=== PATIENT | male | born 1995 | race African-American/Black ===

== ENCOUNTER 2020-08-08 08:06 | Inpatient (IN) | payer SELFPAY ==
[2020-08-08] VITALS (11 sets, daily range): BP systolic 142–180; BP diastolic 82–132; PULSE 76–98; RESP 15–18; TEMP 36.1–36.7; O2SAT 94–100; BMI 28.8
--- NOTE | ~2020-08-08 | CT_ITS ---
EXAMINATION: CT abdomen pelvis w con DATE: 08/08/2020 09:40 INDICATION: Abdominal pain. TECHNIQUE: Computed tomography (CT) of the abdomen and pelvis was performed with 100 mL Omnipaque 350 intravenous contrast. Automated exposure control and iterative reconstruction technique were employe d. The dose-length product was 653.77 mGy-cm. COMPARISON: None. FINDINGS: The visualized portions of the lung bases are clear without pneumonia or pleural effusion. The heart size is normal. No pericardial effusion. There is mild fat stranding adjacent to the uncina te process of the pancreas. The liver, gallbladder, spleen, adrenal glands, and kidneys are normal. T here are no dilated loops of bowel. The appendix is normal. There are no pathologically enlarged lymp h nodes. There is no free intraperitoneal fluid. There is mild lumbar spondylosis. IMPRESSION: 1. Mild fat stranding adjacent to the uncinate process of the pancreas suspicious for acute interstit ial pancreatitis. Correlate with lipase. Reviewed, dictated and finalized at location A. IMPRESSION: 1. Mild fat stranding adjacent to the uncinate process of the pancreas suspicio us for acute interstitial pancreatitis. Correlate with lipase.
--- NOTE | ~2020-08-08 | XR_ITS ---
XR lumbar spine 2-3V DATE: 08/08/2020 08:56 INDICATION: Low back pain TECHNIQUE: AP, lateral, coned lateral lumbosacral views COMPARISON: None FINDINGS: Normal alignment of lumbar spine. No fracture or bone destruction or spondylolisthesis. The included lower thoracic and lumbar pedicles are intact. Lumbar and lumbosacral interspaces are well preserved. The sacroiliac joints appear normal. IMPRESSION: Negative Reviewed, dictated and finalized at location A. IMPRESSION: Negative
--- NOTE | 2020-08-08 08:23 | ED.GENADULT ---
HPI - General Adult General Chief complaint: Unspecified Stated complaint: Kidney and back pain Time Seen by Provider: 08/08/20 08:11 Source: patient History of Present Illness HPI narrative: Patient is a 24 y/o male complaining intermittent bilateral low back pain for last 4 months. He describes his pain as sharp and rates it as 10/10 when it hits. He also has some intermittent epigastric abdominal pain, nausea, vomiting, dysuria, urgency and frequency. His last episode of vomiting was yesterday. He admits that he drinks alcohol frequently. Related Data Home Medications Medication Instructions Recorded Confirmed No Home Medications 08/08/20 08/08/20 Allergies Allergy/AdvReac Type Severity Reaction Status Date / Time No Known Allergies Allergy Verified 08/08/20 08:38 Review of Systems Constitutional: Constitutional: Denies chills, Denies fever(s), Denies headache(s) and Denies weakness Eyes: Eyes: Denies blurry vision ENT: Denies headache(s) and Denies neck pain Cardiovascular: Cardiovascular: Denies chest pain and Denies dyspnea Respiratory: Respiratory: Denies cough and Denies dyspnea Gastrointestinal: Gastrointestinal: Denies abdominal pain, Denies diarrhea, Denies nausea and Denies vomiting Genitourinary: Genitourinary: Denies hematuria and Reports dysuria Musculoskeletal: Musculoskeletal: Reports back pain and Denies neck pain Neurologic: Denies headache(s) and Denies weakness Exam Const: General: no acute distress and well developed Orientation/consciousness: oriented to person, oriented to place, oriented to time and patient oriented x3 HENMT: Head: normocephalic Ears: external ears normal General nose exam: Normal external nose present Eyes: General: appearance normal, both eyes and all related structures Conjunctivae: conjunctivae normal Neck: Neck: normal visual inspection and full ROM Chest: Chest palpation & inspection: normal inspection of the chest and no tenderness Resp: Effort & Inspection: normal respiratory effort Auscultation: clear to auscultation bilaterally Cardio: Rate: regular rate Rhythm: regular rhythm GI: GI Palp: Yes abdominal tenderness (epigastric) and Yes Soft to palpation Skin: General skin exam: normal color and turgor normal Neuro: General: oriented to person, oriented to place, oriented to time and patient oriented x3 Cognition (Neuro): normal cognition Extrem: General: normal to inspection, full ROM and no pedal edema Psych: Appearance: grossly normal Mental Status: mental status grossly normal Affect: normal affect Course Consultations Consultation #1: Discussed with Dr. Quiñonez, who agrees to admit. Date: 08/08/20 Time: 10:47 Vital Signs Vital signs: Vital Signs Temperature 36.6 C 08/08/20 08:20 Pulse Rate 97 08/08/20 08:20 Respiratory Rate 16 08/08/20 08:20 Blood Pressure 177/132 H 08/08/20 08:20 Pulse Oximetry 100 08/08/20 08:20 Temperature 36.6 C 08/08/20 08:20 Pulse Rate 97 08/08/20 08:20 Respiratory Rate 16 08/08/20 08:20 Blood Pressure 177/132 H 08/08/20 08:20 Pulse Oximetry 100 08/08/20 08:20 Medical Decision Making Vital Signs Vital Signs: Vital Signs Temperature 36.6 C 08/08/20 08:20 Pulse Rate 97 08/08/20 08:20 Respiratory Rate 16 08/08/20 08:20 Blood Pressure 177/132 H 08/08/20 08:20 Pulse Oximetry 100 08/08/20 08:20 Temperature 36.6 C 08/08/20 08:20 Pulse Rate 97 08/08/20 08:20 Respiratory Rate 16 08/08/20 08:20 Blood Pressure 177/132 H 08/08/20 08:20 Pulse Oximetry 100 08/08/20 08:20 Lab Data Result diagrams: 08/08/20 08:30 08/08/20 08:30 Labs: Lab Results 08/08/20 08/08/20 08/08/20 Range/Units 08:30 08:30 08:30 WBC 4.9 (4.5-10.0) K/mm3 RBC 4.99 (4.6-6.20) M/mm3 Hgb 14.0 (14.0-18.0) g/dL Hct 42.8 (42.0-52.0) % MCV 85.8 (80-100) fl MCH 28.1 (26-34) pg MCHC 32.7 (32-36) g
[2020-08-08 08:47] LABS: Basophils Absolute Auto 0.1 K/mm3 (0.0-0.1); Eosinophils Absolute Auto 0.1 K/mm3 (0-0.3); Hematocrit 42.8 % (42.0-52.0); Immature Granulocyte Absolute 0.02 K/mm3 (0.00-0.031); Immature Granulocyte Percent A 0.4 % (0-0.5); Lymphocytes Absolute Auto 2.42 K/mm3 (0.9-3.2); Lymphocytes Percent Auto 49.3 % (18.3-44.2); Mean Corpuscular HGB Conc 32.7 g/dl (32-36); Mean Corpuscular Hemoglobin 28.1 pg (26-34); Mean Corpuscular Volume 85.8 fl (80-100); Mean Platelet Volume 9.5 fl (7.4-10.4); Monocytes Absolute Auto 0.5 K/mm3 (0.1-0.6); Neutrophils Absolute Auto 1.8 K/mm3 (1.3-6.7); Neutrophils Percent Auto 37.3 % (45.5-73.1); Platelet Count Result 231 k/mm3 (150-375); Red Blood Count 4.99 M/mm3 (4.6-6.20); Red Cell Distribution Width 14.3 % (11.5-14.5); White Blood Count 4.9 K/mm3 (4.5-10.0)
[2020-08-08 08:50] LABS: Add Urine Microscopic? YES; Appearance Urine Clear (Clear); Bilirubin Urine Negative (Negative); Blood Urine Negative (Negative); Color Urine Yellow (Yellow); Glucose Urine UA 2+ mg/dL (Negative); Ketones Urine Negative (Negative); Leukocyte Esterase Ur Negative LEU/UL (Negative); Mucus Urine Rare /lpf; Nitrate Urine Negative (Negative); Protein Urine 1+ mg/dL (Negative); RBC Urine 0-2 /hpf (0-2); Specific Grav Ur 1.027 (1.001-1.035); Squamous Epithelial Cell Urine Rare /hpf (Few); Urobilinogen Urine Negative mg/dL (<2.0); WBC Urine 0-3 /hpf
[2020-08-08 09:00] LABS: Alanine Aminotransferase 84 U/L (4-50); Albumin Level 4.9 g/dL (3.5-5.1); Alkaline Phosphatase 105 U/L (38-126); Anion Gap 12 mmol/L (8-16); Aspartate Amino Transferase 139 U/L (17-59); Bilirubin,Total 0.3 mg/dL (0.2-1.3); Blood Urea Nitrogen 14 mg/dL (9-20); Calcium 9.2 mg/dL (8.4-10.2); Carbon Dioxide 32 mmol/L (22-30); Chloride 104 mmol/L (98-107); Estimated Glomerular Filt Rate > 60; Glucose 132 mg/dL (75-110); Potassium 3.8 mmol/L (3.4-5.0); Sodium 148 mmol/L (137-145)
[2020-08-08] MEDS: amLODIPine BESYLATE 5 MG TABLET 10 MG PO (09:15)
[2020-08-08] MEDS: hydroCHLOROthiazide 25 MG TABLET PO (09:17)
[2020-08-08 10:01] LABS: Hepatitis B Surface Antigen Negative (Negative)
[2020-08-08 10:07] LABS: HAV RESULT Negative (Negative); Hepatitis B Core IgM Result Negative (Negative)
[2020-08-08 10:19] LABS: Hepatitis C Virus Antibody Negative (Negative)
[2020-08-08 10:20] LABS: Lipase 504 U/L (23-300)
[2020-08-08 10:35] LABS: Ethanol 386 mg/dL (<10)
[2020-08-08] MEDS: KETOROLAC 30 MG/ML VIAL (*BKC) IV PUSH ×2 (10:54→18:02)
[2020-08-08] MEDS: SODIUM CHLORIDE 0.9% IV 1,000 ML 999 ML IV CONT (10:55)
[2020-08-08] MEDS: lisinopriL 20 MG TABLET 40 MG PO (10:55)
--- NOTE | 2020-08-08 11:48 | PC.NURSE ---
This patient, Angelia Nava, was admitted to [facility] Surg Room 303-01. Patient/family oriented to hospital policies and general routines including ID bracelet, bed and alarms, visiting hours, pain management, procedures, bathroom and other care routines, personal items, smoking policy, room service/diet, and visiting hours. Information on how to activate the Rapid Response Team has been discussed. Patient/Family are encouraged to report perceived risks to care and to ask questions if they do not understand what they are told or what they should do.
[2020-08-08] MEDS: SODIUM CHLORIDE 0.9% IV 1,000 ML 125 ML IV CONT ×2 (12:01→18:04)
--- NOTE | 2020-08-08 14:00 | PM.IMHP ---
H&P: HPI History of Present Illness Date/Time: 08/08/20 14:00 Chief complaint: Abdominal pain. Narrative: Angelia Nava is a 24-year-old male with history of untreated hypertension who presented to the emergency department earlier this morning for evaluation of abdominal pain. This morning he developed severe sharp, throbbing pain in the epigastrium radiating through to the back associated with nausea and vomiting. He has had similar symptoms intermittently over the past 4 months or so, but never this severe. With further questioning he admits to binge drinking alcohol 2 to 3 times a week, upwards of a 5th of vodka each night, and in fact he was intoxicated on arrival to the emergency department today with a blood alcohol level of 386. He was given Toradol in the emergency department with some benefit however his pain has since returned, now rated 7/10. He sees no pattern as to when these episodes of discomfort occur, denying that they specifically related to previous binges. He denies history of GERD but it sounds as though he has intermittent discomfort in the epigastrium and bloating more recently and reports an increase in stress recently as well. Last bowel movement was yesterday and was relatively unremarkable however he does report on occasion having darker colored stools although he has not noticed any overt blood. He has no history of pancreatitis or gallbladder disease. No known history of GERD or peptic ulcers. Of note, he also reports intermittent urinary issues, reporting occasional pelvic fullness, urgency, dysuria, and dark cloudy urine. He has previously been treated for chlamydia but that was many years ago. No genital sores or discharge. Review of Systems Review of Systems: Narrative: Twelve systems were reviewed with pertinent positives and negatives as per HPI. No history of seizure. On occasion he will have shakes after going on alcohol binges, but he has not had any other symptoms of withdrawal aside from that. No fever, chills, or sweats. No recent cold or flu symptoms. He denies chest pain and shortness of breath. No cough. Except as documented, all other systems were reviewed and are negative. [facility] Past Medical History Medical History (Updated 08/08/20 @ 22:46 by Jennifer Reddy PA-C) Alcohol abuse Hypertension Surgical History Surgical History (Updated 08/08/20 @ 22:41 by Jennifer Reddy PA-C) No history of previous surgery Family History Family History (Updated 08/08/20 @ 22:41 by Jennifer Reddy PA-C) Father Hypertension Heart attack Father had IN at age 36. Mother Hypertension Social History Social History (Updated 08/08/20 @ 22:42 by Jennifer Reddy PA-C) Social History: Surrogate decision maker: Daphnie Rich, significant other. Code status: Full code. Smoking packs per day: 0.25 Smoking cigarettes per day: 5.0 Smoking status: Current every day smoker Tobacco type: cigarettes Alcohol intake: current Alcohol use details: Binge drinks 2 to 3 times a week, mainly vodka as detailed in HPI. Substance use: never Additional living arrangements comments: Resides in [place] but is moving to the area with his girlfriend soon. Additional occupation/education comments: Works locally. Gender identity (if verbalized by the patient): Male Spiritual care concerns: No Meds Home Medications and Allergies Home Medications Medication Instructions Recorded Confirmed Type No Home Medications 08/08/20 08/08/20 History Allergies Allergy/AdvReac Type Severity Reaction Status Date / Time No Known Allergies Allergy Verified 08/08/20 08:38 Vital Signs Vital Signs - 24 hr 08/08/20 08:20 08/08/20 08:53 08/08/20 09:01 Temperature 97.9 F Pulse Rate 97 95 98 Respiratory Rate 16 18 16 Blood Pressure 177/132 H 180/120 H 179/128 H Pulse Oximetry 100 98 96 08/08/20 09:16 08/08/20 10:06 08/08/20 11:25 Temperature
[2020-08-08 21:23] LABS: INR 0.9; Prothrombin Time 11.8 Seconds (11.1-14.7)
[2020-08-08 21:24] LABS: Partial Thromboplastin Time 30.7 SECONDS (22.3-36.8)
[2020-08-08 21:28] LABS: Anion Gap 10 mmol/L (8-16); Blood Urea Nitrogen 11 mg/dL (9-20); Calcium 8.7 mg/dL (8.4-10.2); Carbon Dioxide 31 mmol/L (22-30); Chloride 99 mmol/L (98-107); Estimated CRCL calculation 139 ml/min; Estimated Glomerular Filt Rate > 60; Glucose 86 mg/dL (75-110); Magnesium 1.8 mg/dL (1.6-2.3); Potassium 3.6 mmol/L (3.4-5.0); Sodium 140 mmol/L (137-145)
[2020-08-08] MEDS: THIAMINE HCL 200 MG/2 ML VIAL 100 MG IV PUSH (21:34)
[2020-08-08] MEDS: PANTOPRAZOLE SODIUM IV 40 MG VIAL IV PUSH (22:24)
[2020-08-08] MEDS: MORPHINE SULFATE (*CRX) 2 MG/ML INJ IV PUSH (22:25)
[2020-08-09] VITALS (8 sets, daily range): BP systolic 142–182; BP diastolic 90–117; PULSE 68–80; RESP 16–22; TEMP 36.1–36.3; O2SAT 95–99
[2020-08-09] MEDS: MORPHINE SULFATE (*CRX) 2 MG/ML INJ IV PUSH ×2 (02:09→08:36)
[2020-08-09] MEDS: SODIUM CHLORIDE 0.9% IV 1,000 ML 125 ML IV CONT ×2 (02:11→10:17)
[2020-08-09] MEDS: ONDANSETRON INJ 4 MG/2 ML VIAL IV PUSH (04:47)
[2020-08-09 05:47] LABS: Hematocrit 37.8 % (42.0-52.0); Hemoglobin 12.8 g/dL (14.0-18.0); Mean Corpuscular HGB Conc 33.9 g/dl (32-36); Mean Corpuscular Hemoglobin 28.4 pg (26-34); Mean Corpuscular Volume 83.8 fl (80-100); Mean Platelet Volume 9.3 fl (7.4-10.4); Platelet Count Result 190 k/mm3 (150-375); Red Blood Count 4.51 M/mm3 (4.6-6.20); Red Cell Distribution Width 13.3 % (11.5-14.5); White Blood Count 4.1 K/mm3 (4.5-10.0)
[2020-08-09 05:59] LABS: Alanine Aminotransferase 71 U/L (4-50); Albumin Level 4.5 g/dL (3.5-5.1); Alkaline Phosphatase 78 U/L (38-126); Anion Gap 10 mmol/L (8-16); Aspartate Amino Transferase 111 U/L (17-59); Bilirubin,Total 0.8 mg/dL (0.2-1.3); Blood Urea Nitrogen 9 mg/dL (9-20); Calcium 8.6 mg/dL (8.4-10.2); Carbon Dioxide 29 mmol/L (22-30); Chloride 97 mmol/L (98-107); Estimated CRCL calculation 157 ml/min; Estimated Glomerular Filt Rate > 60; Glucose 89 mg/dL (75-110); Lipase 206 U/L (23-300); Magnesium 1.2 mg/dL (1.6-2.3); Potassium 3.3 mmol/L (3.4-5.0); Sodium 136 mmol/L (137-145)
[2020-08-09] MEDS: METOPROLOL TARTRATE INJ 5 MG/5 ML VIAL IV PUSH ×2 (06:50→11:47)
[2020-08-09] MEDS: THIAMINE HCL 100 MG TABLET PO (08:37)
[2020-08-09] MEDS: FOLIC ACID 1 MG TABLET PO (08:37)
[2020-08-09] MEDS: amLODIPine BESYLATE 5 MG TABLET PO (08:38)
[2020-08-09] MEDS: hydroCHLOROthiazide 25 MG TABLET PO (08:38)
[2020-08-09] MEDS: PANTOPRAZOLE SODIUM IV 40 MG VIAL IV PUSH ×2 (10:12→10:13)
[2020-08-09] MEDS: MAGNESIUM SULFATE 3GM/D5W100ML 3 GM/100 ML BAG IVPB (10:49)
[2020-08-09] MEDS: KCL 20 MEQ/SW 100 ML 100 ML 50 MEQ IVPB (11:46)
[2020-08-09] MEDS: hydrALAZINE HCL 20 MG/ML VIAL 10 MG IV PUSH (14:31)
--- NOTE | 2020-08-09 14:40 | PM.DS ---
DS: Admitting Diagnosis Admitting Diagnosis Admitting Diagnosis: Abdominal pain. DS: Discharge Diagnosis Discharge Diagnosis (1) Acute pancreatitis: Qualifiers: Acute pancreatitis complication: no infection or necrosis Pancreatitis type: alcohol induced Qualified Code(s): K85.20 - Alcohol induced acute pancreatitis without necrosis or infection Code(s): K85.90 - Acute pancreatitis without necrosis or infection, unspecified Status: Acute Assessment and Plan: -----pancreatitis clinically and confirmed by CT. Likely due to alcohol abuse. Patient educated that he needs to quit drinking and he understands. The day of discharge she was eating and drinking without abdominal pain and his lipase was normal. (2) Alcohol intoxication: Qualifiers: Complication of substance-induced condition: with unspecified complication Qualified Code(s): F10.929 - Alcohol use, unspecified with intoxication, unspecified Code(s): F10.929 - Alcohol use, unspecified with intoxication, unspecified Status: Acute Assessment and Plan: -----educated on the effects of alcohol to the pancreas, stomach and liver. Understands that he is going to quit drinking. Educated on withdrawal symptoms to come to the emergency room for (3) Hypertension: Qualifiers: Hypertension type: essential hypertension Qualified Code(s): I10 - Essential (primary) hypertension Code(s): I10 - Essential (primary) hypertension Status: Acute Assessment and Plan: -----patient has uncontrolled hypertension last blood pressure 162/90 but significantly elevated on admission. We discussed how uncontrolled hypertension can affect the body and he agrees to continue medications and follow-up with primary care physician to see if he needs adjustments. (4) Elevated LFTs: Code(s): R79.89 - Other specified abnormal findings of blood chemistry Status: Acute Assessment and Plan: -----improving, likely due to alcohol abuse. (5) Alcohol abuse: Code(s): F10.10 - Alcohol abuse, uncomplicated Status: Acute Assessment and Plan: -----see above (6) Lower urinary tract symptoms: Code(s): R39.9 - Unspecified symptoms and signs involving the genitourinary system Status: Acute Assessment and Plan: -----has back pain and urinary pain. UA is negative, GC and chlamydia pending and if these return positive I will prescribe him medications. No discharge or pain DS: Summary Hospital Course Reason for hospitalization: Pancreatitis Hospital Course: Patient is a 24-year-old male who presented emergency room for intermittent back pain and abdominal pain found to have pancreatitis on CT with lipase 504. UA did not indicate infection. Patient was admitted to the hospitalist service and observed. His pain quickly resolved and he was able to eat a regular diet the next day without any pain. When he was admitted, his alcohol level was elevated and he states that he does have alcohol abuse. We had a long talk about had a quit drinking alcohol and the affects it can have on the body. He is determined to quit and has support at home. He also had elevated blood pressure admitted and was started on blood pressure medications. Please see above for further details. Patient was educated about the worrisome signs and symptoms come back emergency for was discharged stable condition. Status at Discharge Functional status at discharge: independent ambulation Overall status at discharge: patient is back to baseline Time Spent with Patient Time attestation: Total time spent providing and/or coordinating discharge services:34 min Time spent: Greater than 30 minutes Exam Narrative: Exam Narrative: General: Well developed well nourished patient in NAD HEENT: normocephalic Neck: supple Neuro: Alert and oriented x4 CV:RRR Resp:CTA Abd: Soft, non dis
--- NOTE | 2020-08-16 11:44 | PC.NURSE ---
C trachomatis and gonorrhea are both negative.
== END 2020-08-09 16:26 | disposition home or self-care (01) | DRG 282 ==
LOC: ANHED 11:03 → ANH3MEDSUR 11:11
PROVIDERS: Physician Assistant; Admitting Provider Family Medicine; Emergency Provider Emergency Medicine; Visit Provider Family Medicine
DX: K85.20 Alcohol induced acute pancreatitis without necrosis or infection (principal); F10.120 Alcohol abuse with intoxication, uncomplicated; Y90.8 Blood alcohol level of 240 mg/100 ml or more; R79.89 Other specified abnormal findings of blood chemistry; I10 Essential (primary) hypertension; M54.5 Low back pain; R30.0 Dysuria; F17.210 Nicotine dependence, cigarettes, uncomplicated
CPT/HCPCS: 36415; 72100; 74177; 80048; 80053; 80074; 80307; 81001; 83690; 83735; 85025; 85027; 85610; 85730; 87491; 87591; 96361; 96374; 99285; A9270; C9113; G0378; G0379; J0360; J1885; J2270; J2405; J3411; J3475; J3480; J7030; Q9967